=== PATIENT | female | born 1995 | race American Indian/Alaskan Native ===

== ENCOUNTER 2017-01-25 18:24 | Outpatient (CLI) | payer MEDICAID ==
[2017-01-25] MEDS ORDERED: VISTARIL PO PRN (19:36)
[2017-01-25 20:50] VITALS: BP 113/71
== END 2017-01-25 21:49 | disposition home or self-care (01) ==
LOC: TRG 18:24
PROVIDERS: ATTEND Obstetrics & Gynecology
DX: Z34.93 Encounter for supervision of normal pregnancy, unspecified, third trimester (principal); Z3A.37 37 weeks gestation of pregnancy

== ENCOUNTER 2017-02-10 13:45 | Outpatient (CLI) | payer MEDICAID ==
[2017-02-10 14:48] VITALS: BP 119/64
== END 2017-02-10 15:39 | disposition home or self-care (01) ==
LOC: TRG 13:45
PROVIDERS: ATTEND Obstetrics & Gynecology
DX: O47.1 False labor at or after 37 completed weeks of gestation (principal); Z3A.39 39 weeks gestation of pregnancy

== ENCOUNTER 2017-02-14 12:38 | Outpatient (CLI) | payer MEDICAID ==
[2017-02-14 12:48] VITALS: BP 113/68
[2017-02-14] MEDS ORDERED: VISTARIL PO PRN (13:52)
[2017-02-14] MEDS ORDERED: VISTARIL ONE (13:59)
[2017-02-15] MEDS ORDERED: ATIVAN ONE (16:11)
== END 2017-02-14 14:07 | disposition home or self-care (01) ==
LOC: TRG 12:38
PROVIDERS: ATTEND Obstetrics & Gynecology
DX: O48.0 Post-term pregnancy (principal); Z3A.40 40 weeks gestation of pregnancy
CPT/HCPCS: J2060; Q0177